=== PATIENT | male | born 1940 | race Caucasian/White ===

== ENCOUNTER 2019-10-13 11:52 | Emergency (ER) | payer MEDICARE, BC ==
--- NOTE | 2019-10-13 12:45 | EDM.PDOC ---
ED HPI GENERAL MEDICAL PROBLEM - General Chief Complaint: Skin Complaint Stated Complaint: LEFT TOE SWOLLEN Time Seen by Provider: 10/13/19 12:20 Source of Information: Reports: Patient, Family History Limitations: Reports: No Limitations - History of Present Illness INITIAL COMMENTS - FREE TEXT/NARRATIVE: 79-year-old male concerned about an inflammatory response for the past 24 to 36 hours. Yesterday he noticed his left foot was itching under his second toe, he noticed erythema and redness with a blister underneath the toe and a black spot. His took a closer look and it was an embedded tick underneath his toe. Today there is more swelling, several other blisters, serous drainage from the top of the foot and erythema around the top of the foot almost to the ankle. There is some mild to moderate edema especially of the second toe. There is no pain, he has no fever, no chills. Onset: Gradual Duration: Hour(s): (36 hours) Location: Reports: Lower Extremity, Left Associated Symptoms: Reports: No Other Symptoms - Related Data Allergies Allergy/AdvReac Type Severity Reaction Status Date / Time Penicillins Allergy Rash Verified 10/13/19 12:17 phenytoin [From Dilantin] Allergy Rash Verified 10/13/19 12:17 Home Meds: Home Meds Dabigatran [Pradaxa] 150 mg PO BID 10/13/19 [History] amLODIPine [Norvasc] 2.5 mg PO BEDTIME 10/13/19 [History] levETIRAcetam [Keppra] 750 mg PO BID 10/13/19 [History] Past Medical History HEENT History: Reports: Hard of Hearing, Impaired Vision Cardiovascular History: Reports: Afib, Hypertension Genitourinary History: Reports: Prostate Disorder Neurological History: Reports: Seizure Endocrine/Metabolic History: Reports: Hyperparathyroidism Oncologic (Cancer) History: Reports: Basal Cell Carcinoma, Prostate, Squamous Cell Carcinoma Dermatologic History: Reports: Eczema - Infectious Disease History Infectious Disease History: Reports: Chicken Pox, Measles, Mumps - Past Surgical History HEENT Surgical History: Reports: Adenoidectomy, Tonsillectomy GI Surgical History: Reports: Hernia Repair/Other Male Surgical History: Reports: Prostatectomy Endocrine Surgical History: Reports: Parathyroidectomy Social & Family History - Tobacco Use Smoking Status *Q: Never Smoker - Caffeine Use Caffeine Use: Reports: Coffee, Tea - Alcohol Use Days Per Week of Alcohol Use: 7 Number of Drinks Per Day: 2 Total Drinks Per Week: 14 - Recreational Drug Use Recreational Drug Use: No ED ROS GENERAL - Review of Systems Review Of Systems: See Below Constitutional: Denies: Fever, Chills Respiratory: Denies: Shortness of Breath Cardiovascular: Denies: Chest Pain GI/Abdominal: Denies: Abdominal Pain, Nausea, Vomiting Skin: Reports: Erythema, Other (Blistering developing) Neurological: Denies: Paresthesia ED EXAM, SKIN/RASH Exam: See Below Exam Limited By: No Limitations General Appearance: Alert, No Apparent Distress Respiratory/Chest: No Respiratory Distress, Lungs Clear Extremities: Other (Exam is otherwise limited to the left foot. He has diffuse edema of the second toe, with some edema extending across the top of the foot. There is 1 large intact blister on the top of the toe, and 2 smaller collapsed blisters with clear serous drainage at the base of the toe. There is erythema extending over the top of the foot, but no significant warmth) Neurological: Alert, Oriented Psychiatric: Normal Affect, Normal Mood Course - Vital Signs Last Recorded V/S: Last Vital Signs Temp 96.5 F L 10/13/19 12:25 Pulse 78 10/13/19 12:25 Resp 15 10/13/19 12:25 BP 185/95 H 10/13/19 12:25 Pulse Ox 96 10/13/19 12:25 - Re-Assessments/Exams Free Text/Narrative Re-Assessment/Exam: 10/13/19 12:43 This patient is having an inflammatory response to the tick bite, but a component of cellulitis is certainly possible. He will be covered with 300 mg clindamycin 3 times a day for 5 days, encouraged to elevate the foot with some mild warm compresses. He can recheck in 48 hours if not improving satisfactorily, or return anytime if worsening despite treatment. Departure - Departure Time of Disposition: 12:58 Disposition: Home, Self-Care 01 Clinical Impression: Cellulitis of left foot - Discharge Information Instructions: Cellulitis, Adult Referrals: PCP,None [Primary Care Provider] - Forms: ED Department Discharge Care Plan Goals: Take antibiotic 3 times a day as prescribed until gone, 5 days worth. No further antibiotic should be necessary if there is a good response. Recheck anytime if not improving satisfactorily, or return to the emergency room if worsening despite treatment. Elevation of the foot will be helpful. Increase activity as tolerated. Sepsis Event Note (ED) - Evaluation Sepsis Screening Result: No Definite Risk - Focused Exam Vital Signs: Vital Signs Temp Pulse Resp BP Pulse Ox 10/13/19 12:25 96.5 F L 78 15 185/95 H 96 10/13/19 12:13 96.5 F L 78 15 185/95 H 96
== END 2019-10-13 12:58 | disposition home or self-care (01) ==
LOC: JP.ED 11:52
DX: L03.116 Cellulitis of left lower limb (principal); I10 Essential (primary) hypertension; I48.91 Unspecified atrial fibrillation; R56.9 Unspecified convulsions; Z88.0 Allergy status to penicillin; Z88.8 Allergy status to other drugs, medicaments and biological substances; Z79.899 Other long term (current) drug therapy; Z90.49 Acquired absence of other specified parts of digestive tract; Z98.890 Other specified postprocedural states
CPT/HCPCS: 99282

== ENCOUNTER 2021-10-31 16:50 | Emergency (ER) | payer MEDICARE, BC ==
[2021-10-31] MEDS ORDERED: Bacitracin Oint 1 GM U/D Packet TOP ONE (17:59)
== END 2021-10-31 18:34 | disposition home or self-care (01) ==
LOC: JP.ED 16:50
DX: S61.412A Laceration without foreign body of left hand, initial encounter (principal); I10 Essential (primary) hypertension; Z79.01 Long term (current) use of anticoagulants; Z88.0 Allergy status to penicillin; Z88.8 Allergy status to other drugs, medicaments and biological substances; Z79.899 Other long term (current) drug therapy; X50.0XXA Overexertion from strenuous movement or load, initial encounter
CPT/HCPCS: 12002; 99282